=== PATIENT | female | born 1975 | race Caucasian/White ===

== ENCOUNTER → 2019-11-08 10:40 | Outpatient (BNVA) | payer MEDICAID, SELFPAY | PROVIDERS: Family Provider Family Medicine; PCP Family Medicine; Visit Provider Nurse Practitioner Family | DX: R05 Cough (principal); R10.9 Unspecified abdominal pain; J01.00 Acute maxillary sinusitis, unspecified; N39.0 Urinary tract infection, site not specified | CPT/HCPCS: 81003; 87086; 87804 ==

== ENCOUNTER → 2019-12-11 13:41 | Outpatient (BNVA) | payer MEDICAID, SELFPAY | PROVIDERS: Family Provider Family Medicine; PCP Family Medicine; Visit Provider Nurse Practitioner | DX: F33.2 Major depressive disorder, recurrent severe without psychotic features (principal); G47.30 Sleep apnea, unspecified | CPT/HCPCS: 99213 ==

== ENCOUNTER 2020-01-01 08:38 | Outpatient (CLI) | payer MEDICAID, SELFPAY ==
--- NOTE | 2020-01-01 09:00 | MM_ITS ---
WS: [id number] Bilateral diagnostic digital mammogram, 01/01/2020 Clinical Data: breast pain Comparison: None. Findings: No spiculated masses or clustered calcifications are seen. There are no secondary signs of carcinoma. The breast parenchymal pattern shows heterogeneous density. MM/[id number] Impression: 1. Negative bilateral mammograms with no comparison view available. 2. Recommend bilateral breast ultrasound. BIRADS: 0-Incomplete: Need additional imaging evaluation FOLLOW UP: See Report The CAD box car checker was used.
--- NOTE | 2020-01-01 09:30 | US_ITS ---
WS: [id number] Bilateral breast ultrasound, 01/01/2020 Clinical Data: breast pain Comparison: Mammogram, 01/01/2020 Findings: The right breast was imaged and in the upper inner quadrant at 1:00 there were 2 breast cysts. One m easured 0.4 x 0.4 x 0.4 cm and the other was 0.2 x 0.2 x 0.3 cm. In the upper outer quadrant the estela laura of the breast showed only normal breast tissue. There were no masses. The left breast was scanned in the 1:00 position in the upper outer quadrant. No abnormal tissue coul d be seen. There were no cysts or masses. There were several dilated mammary ducts. 1. Right breast shows 2 small cysts in the upper inner quadrant at 1:00. 2. Left breast shows minimally dilated mammary ducts in the upper outer quadrant at 1:00. US/US breast BI limited* [id number] Impression: BIRADS: 2-Benign FOLLOW UP: 1 Year Follow-up
== END 2020-01-01 08:39 | disposition home or self-care (01) ==
LOC: RADSHAW 08:40
PROVIDERS: Family Provider Family Medicine; PCP Family Medicine; Visit Provider Obstetrics & Gynecology
DX: N60.01 Solitary cyst of right breast (principal); N60.42 Mammary duct ectasia of left breast; N63.12 Unspecified lump in the right breast, upper inner quadrant; N63.21 Unspecified lump in the left breast, upper outer quadrant
CPT/HCPCS: 76642; 77066

== ENCOUNTER → 2020-02-09 09:57 | Outpatient (BNVA) | payer MEDICAID, SELFPAY | PROVIDERS: Family Provider Family Medicine; PCP Family Medicine; Visit Provider Specialist | DX: G43.909 Migraine, unspecified, not intractable, without status migrainosus (principal); F17.210 Nicotine dependence, cigarettes, uncomplicated | CPT/HCPCS: 99213 ==

== ENCOUNTER → 2020-03-05 07:44 | Outpatient (BNVA) | payer MEDICAID, SELFPAY | PROVIDERS: Family Provider Family Medicine; PCP Family Medicine; Visit Provider Nurse Practitioner | DX: F33.2 Major depressive disorder, recurrent severe without psychotic features (principal); G47.30 Sleep apnea, unspecified | CPT/HCPCS: 99214 ==

== ENCOUNTER → 2020-05-12 07:44 | Outpatient (BNVA) | payer MEDICAID, SELFPAY | PROVIDERS: Family Provider Family Medicine; PCP Family Medicine; Visit Provider Nurse Practitioner | DX: G47.30 Sleep apnea, unspecified (principal); F33.2 Major depressive disorder, recurrent severe without psychotic features; F41.1 Generalized anxiety disorder; F43.12 Post-traumatic stress disorder, chronic | CPT/HCPCS: 99214 ==

== ENCOUNTER → 2020-05-25 10:20 | Outpatient (BNVA) | payer MEDICAID, SELFPAY | PROVIDERS: Family Provider Family Medicine; PCP Family Medicine; Visit Provider Nurse Practitioner | DX: M54.5 Low back pain (principal); Z87.440 Personal history of urinary (tract) infections | CPT/HCPCS: 80053; 81000; 87077; 87086; 87186 ==

== ENCOUNTER → 2020-06-08 14:14 | Outpatient (BNVA) | payer MEDICAID, SELFPAY | PROVIDERS: Family Provider Family Medicine; PCP Family Medicine; Visit Provider Specialist | DX: G43.019 Migraine without aura, intractable, without status migrainosus (principal); F17.210 Nicotine dependence, cigarettes, uncomplicated | CPT/HCPCS: 99213 ==

== ENCOUNTER → 2020-08-04 07:53 | Outpatient (BNVA) | payer MEDICAID, SELFPAY | PROVIDERS: Family Provider Family Medicine; PCP Family Medicine; Visit Provider Nurse Practitioner | DX: F33.2 Major depressive disorder, recurrent severe without psychotic features (principal); G47.30 Sleep apnea, unspecified | CPT/HCPCS: 99213 ==

== ENCOUNTER → 2020-08-22 10:24 | Outpatient (BNVA) | payer MEDICAID, SELFPAY | PROVIDERS: Family Provider Family Medicine; PCP Family Medicine; Visit Provider Nurse Practitioner | DX: N39.0 Urinary tract infection, site not specified (principal) | CPT/HCPCS: 81000; 87086 ==

== ENCOUNTER → 2020-10-28 10:39 | Outpatient (BNVA) | payer MEDICAID, SELFPAY | PROVIDERS: PCP Family Medicine; Visit Provider Nurse Practitioner | DX: F33.2 Major depressive disorder, recurrent severe without psychotic features (principal); G47.30 Sleep apnea, unspecified | CPT/HCPCS: 99213 ==

== ENCOUNTER → 2020-11-08 10:49 | Outpatient (BNVA) | payer MEDICAID, SELFPAY | PROVIDERS: PCP Family Medicine; Visit Provider Internal Medicine Rheumatology | DX: M05.79 Rheumatoid arthritis with rheumatoid factor of multiple sites without organ or systems involvement (principal); Z79.899 Other long term (current) drug therapy; Z11.1 Encounter for screening for respiratory tuberculosis; Z11.59 Encounter for screening for other viral diseases; F17.210 Nicotine dependence, cigarettes, uncomplicated | CPT/HCPCS: 99204 ==

== ENCOUNTER → 2020-11-11 12:47 | Outpatient (BNVA) | payer MEDICAID, SELFPAY | PROVIDERS: PCP Family Medicine; Visit Provider Specialist | DX: G43.711 Chronic migraine without aura, intractable, with status migrainosus (principal); F17.210 Nicotine dependence, cigarettes, uncomplicated | CPT/HCPCS: 99213 ==

== ENCOUNTER → 2020-12-21 13:03 | Outpatient (BNVA) | payer MEDICAID, SELFPAY | PROVIDERS: PCP Family Medicine; Visit Provider Internal Medicine Rheumatology | DX: M05.79 Rheumatoid arthritis with rheumatoid factor of multiple sites without organ or systems involvement (principal); Z79.899 Other long term (current) drug therapy; Z79.52 Long term (current) use of systemic steroids; R25.2 Cramp and spasm; F17.210 Nicotine dependence, cigarettes, uncomplicated | CPT/HCPCS: 99214 ==

== ENCOUNTER → 2021-01-20 08:40 | Outpatient (BNVA) | payer MEDICAID, SELFPAY | PROVIDERS: PCP Family Medicine; Visit Provider Nurse Practitioner | DX: F33.2 Major depressive disorder, recurrent severe without psychotic features (principal); G47.00 Insomnia, unspecified | CPT/HCPCS: 99214 ==

== ENCOUNTER 2021-02-07 07:42 | Outpatient (CLI) | payer MEDICAID, SELFPAY ==
--- NOTE | 2021-02-07 08:00 | MM_ITS ---
WS: [id number] Exam: [id number] Date/Time of Exam: 02/07/2021 7:49 AM Reason For Exam: Z12.39 - Encounter for other screening for malignant neoplasm of breast VIEWS: MLO and CC views both breasts. Comparison made with prior exam of 01/01/2020. Findings: There was no sign of mass, architectural distortion or suspicious calcification in either breast. He terogeneously dense MM/[place] [id number] Impression: BI-RADS: 2-Benign FOLLOW-UP: 1 Year Follow-up This mammogram was also analyzed by the Computer Aided Detection System R2 Imag e Linen Grader.
== END 2021-02-07 07:43 | disposition home or self-care (01) ==
LOC: RADSHAW 07:43
PROVIDERS: PCP Family Medicine; Visit Provider Obstetrics & Gynecology
DX: Z12.31 Encounter for screening mammogram for malignant neoplasm of breast (principal)
CPT/HCPCS: 77067

== ENCOUNTER → 2021-04-14 13:05 | Outpatient (BNVA) | payer MEDICAID, SELFPAY | PROVIDERS: PCP Family Medicine; Visit Provider Nurse Practitioner | DX: F33.2 Major depressive disorder, recurrent severe without psychotic features (principal); G47.00 Insomnia, unspecified | CPT/HCPCS: 99214 ==

== ENCOUNTER → 2021-04-26 12:48 | Outpatient (BNVA) | payer MEDICAID, SELFPAY | PROVIDERS: PCP Family Medicine; Visit Provider Internal Medicine Rheumatology | DX: M05.79 Rheumatoid arthritis with rheumatoid factor of multiple sites without organ or systems involvement (principal); Z79.899 Other long term (current) drug therapy; Z71.89 Other specified counseling; F17.210 Nicotine dependence, cigarettes, uncomplicated | CPT/HCPCS: 99214 ==

== ENCOUNTER → 2021-05-11 08:57 | Outpatient (BNVA) | payer MEDICAID, SELFPAY | PROVIDERS: PCP Family Medicine; Visit Provider Specialist | DX: G43.711 Chronic migraine without aura, intractable, with status migrainosus (principal); M06.9 Rheumatoid arthritis, unspecified; F17.210 Nicotine dependence, cigarettes, uncomplicated | CPT/HCPCS: 99213; 99214 ==

== ENCOUNTER → 2021-07-14 13:01 | Outpatient (BNVA) | payer MEDICAID, SELFPAY | PROVIDERS: PCP Family Medicine; Visit Provider Nurse Practitioner | DX: F33.2 Major depressive disorder, recurrent severe without psychotic features (principal); G47.00 Insomnia, unspecified | CPT/HCPCS: 99214 ==

== ENCOUNTER → 2021-08-02 08:43 | Outpatient (BNVA) | payer MEDICAID, SELFPAY | PROVIDERS: PCP Family Medicine; Visit Provider Internal Medicine Rheumatology | DX: M05.79 Rheumatoid arthritis with rheumatoid factor of multiple sites without organ or systems involvement (principal); Z79.899 Other long term (current) drug therapy | CPT/HCPCS: 36415; 80076; 82565; 85025; 86140 ==

== ENCOUNTER → 2021-08-09 12:31 | Outpatient (BNVA) | payer MEDICAID, SELFPAY | PROVIDERS: PCP Family Medicine; Visit Provider Internal Medicine Rheumatology | DX: M05.79 Rheumatoid arthritis with rheumatoid factor of multiple sites without organ or systems involvement (principal); Z79.899 Other long term (current) drug therapy; Z71.89 Other specified counseling; F17.210 Nicotine dependence, cigarettes, uncomplicated | CPT/HCPCS: 99214 ==

== ENCOUNTER → 2021-10-13 13:42 | Outpatient (BNVA) | payer MEDICAID, SELFPAY | PROVIDERS: PCP Family Medicine; Visit Provider Nurse Practitioner | DX: F33.2 Major depressive disorder, recurrent severe without psychotic features (principal); G47.00 Insomnia, unspecified | CPT/HCPCS: 99214 ==

== ENCOUNTER → 2021-11-07 14:58 | Outpatient (BNVA) | payer MEDICAID, SELFPAY | PROVIDERS: PCP Family Medicine; Visit Provider Specialist | DX: G43.919 Migraine, unspecified, intractable, without status migrainosus (principal); Z71.85 Encounter for immunization safety counseling; F17.200 Nicotine dependence, unspecified, uncomplicated | CPT/HCPCS: 99214 ==

== ENCOUNTER 2021-11-11 20:06 | Emergency (ER) | payer MEDICAID, SELFPAY ==
[2021-11-11 20:43] VITALS: BP 145/83; PULSE 100; RESP 16; TEMP 37.6; O2SAT 98
--- NOTE | 2021-11-11 22:24 | W.ED.COVID ---
Documented by User: CHANCE Segovia 11/12/21 01:54 HPI - COVID General: Chief Complaint: COVID symptoms Stated Complaint: back pain, headache, neck pain Time Seen by Provider: 11/11/21 22:24 Triage information: No fever, cough or shortness of breath. No known COVID + exposure last 14 days History of Present Illness: 46-year-old female comes in with headache. Patient also has complaints of neck and mid back pain. Patient reports laying in bed most of the day trying to get rid of the migraine headache and started having back and neck discomfort. Patient appears well. Patient appears in moderate pain. Patient reports light sensitivity, nausea, along with her pain. Patient reports that she is usually able to manage her headaches at home but was not able to tolerate it today. Patient has a history of migraines, rheumatoid arthritis, low back pains, and major depression. COVID 19 common symptoms: positive headache(s) COVID Results: No Data to Display Review of Systems Musc: Reports: neck pain and back pain Neuro: Reports: headache(s) PFSH ED PFSH: Medical History Chronic steroid use High risk medication use History of COPD Immunization counseling Insomnia Major depressive disorder, recurrent severe without psychotic features Migraine headache Past heart attack 5-10 years ago Psychiatric care Seropositive rheumatoid arthritis of multiple sites Sleep apnea, unspecified Surgical History History of bilateral tubal ligation (~1996) History of cholecystectomy (~1996) History of endometrial ablation (06/26/06) ThermaChoice endometrial ablation. Dx: Menorrhagia. Performed by Dr. Holcomb [facility] in [place], [place]. History of hand surgery Left ring finger History of left knee surgery (~2012) History of right knee surgery (~2018) Dr. Smith History of tonsillectomy and adenoidectomy (~1983) Age 9 History of total vaginal hysterectomy (02/01/10) Dx: Lower abdominal pain, Dyspareunia, Entrapped menses. Performed by Dr. Holcomb at [facility] in [place], [place]. Status post hemilaminotomy (08/24/16) Bilateral L5-S1 hemilminotomy/disectomy/foraminotomy. Dx: Displaced lumbosacral intravertebral disc with radiculopathy. Performed by at [facility] in [place], [place]. Family History Unknown Hypertension family members in general Grandmother Diabetes maternal Sister Diabetes Hypercholesteremia Mother Hypercholesteremia Diabetes CAD (coronary artery disease) [place] Family/Other Breast cancer maternal aunt Other Cancer Denies family history of Rheumatoid arthritis Lupus Hyperlipidemia Chronic kidney disease (CKD) Lung disease Stroke Social History Smoking risk assessment/counseling performed?: Yes Tobacco counseling given: counseling >3 minutes Alcohol intake: never History of recent travel: Yes ([place]) Out of state: No Physical Exam Const: COMMON NORMALS: alert Neck/C-Spine: CERVICAL SPINE: Yes Paracervical muscle tenderness right, Yes Paracervical spasm right and Yes Trapezius muscle tenderness Resp: COMMON NORMALS: normal respiratory effort and clear to auscultation bilaterally AUSCULTATION: clear to auscultation bilaterally Cardio: COMMON NORMALS: regular rate and regular rhythm RATE: regular rate RHYTHM: regular rhythm Back/Pelvis: THORACIC SPINE/UPPER BACK: Yes paraspinal muscle tenderness Thoracic paraspinal muscle tenderness: right LUMBAR SPINE/LOWER BACK: Yes paraspinal muscle tenderness Lumbar paraspinal muscle tenderness: right Extremity: COMMON NORMALS: normal to inspection Neuro: SENSORIUM/ORIENTATION: Yes alert Skin: COMMON NORMALS: no rashes or lesions noted GENERAL SKIN EXAM: no rashes or lesions noted Course Vital Signs: Vital signs: Vital Signs Temperature 98.4 F 11/12/21 01:21 Pulse Rate 79 11/12/21 01:21 Respiratory Rate 18 11/12/21 01:21 Blood Pressure 126/68 11/12/21 01:21 Pulse Oximetry 99 11/12/21 01:21 MDM - COVID Medical Decision Making 46-year-old female comes in today with complaints of headache along with muscle pain to the back and neck. On exam the patient had muscle tightness and tenderness along the right cervical spine, mid thoracic spine, and lower lumbar spine. Patient had good range of motion of extremities and back. Patient did have some guarding with rotation of the neck to the right. Vital signs were normal. No signs of injury or illness was noted. Differential diagnosis includes migraine headache, tension headache, muscle strain. Patient was treated for her headache with Reglan 10 mg, and diphenhydramine 12-1/2 mg. Patient was given 8 mg of IV push dexamethasone to prevent rebound headache. Patient was also given some ketorolac 15 mg and orphenadrine 60 mg for her back and neck pain. Patient had improvement in her pain and symptoms. I believe the patient probably has some musculoskeletal pain that has exacerbated patient's chronic headaches. We will continue patient on some meloxicam and tizanidine to help with her back pain. Lab Data No Data to Display Discharge Plan Discharge Patient Disposition: Home Clinical Impression: Acute right-sided thoracic back pain Condition: Stable Prescriptions: New meloxicam 15 mg tablet 15 mg PO DAILY Qty: 10 0RF tizanidine 4 mg tablet 4 mg PO Q8H PRN (Reason: muscle spasticity) Qty: 14 0RF No Action docusate sodium [Colace] 100 mg capsule 200 mg PO DAILY 0RF cholecalciferol (vitamin D3) 4,000 unit capsule 8,000 unit PO DAILY 0RF tramadol 50 mg tablet 50 mg PO Q8H PRN0RF Humira Pen 40 mg/0.8 mL pen injector kit 40 mg SUBCUT Q14D Qty: 2 3RF prednisone 5 mg tablet See Rx Instructions PO DAILY Qty: 90 1RF Rx Instructions: take 1.5 tabs (7.5mg) for 2weeks then stay on 1 tab (5mg) daily PO daily; leflunomide 20 mg tablet 20 mg PO DAILY Qty: 30 3RF Emgality Pen 120 mg/mL pen injector 120 mg SUBCUT ONCE Qty: 1 2RF prazosin 2 mg capsule 4 mg PO .at bed Qty: 60 2RF topiramate [Topamax] 100 mg tablet 100 mg PO BID Qty: 60 3RF diclofenac sodium 1 % gel 2 g topical QID Qty: 100 2RF Rx Instructions: apply to affected area as needed zolpidem [Ambien] 10 mg tablet 10 mg PO .HS Qty: 30 2RF Discharge Orders: Discharge ED (Routine); Ordered 11/11/21 Ordered By: Toney Mejia Referrals: Nish Alexandra MD [Primary Care Provider] - Discharge Diet: Usual diet Discharge Activity: Increase activity as tolerated Patient Instructions: Back Pain (ED), Opioid Safety Activity Restrictions/Additional Instructions: Activity as tolerated. Gentle stretching and range of motion exercises. Use acetaminophen, meloxicam, and tizanidine to help with your back pain and muscle tightness. Make sure to drink plenty of water with medication. Follow-up with primary care for further instruction. Return to the ER for new concerns. Coding Level of Care Code ED Court Orderly for Chg Fwd Exam Detailed Medical Decision Making Low Complexity Time Spent (min) 30 Documented by User: Marcell Bragg DO 11/12/21 02:03 HPI - COVID General: Chief Complaint: COVID symptoms Stated Complaint: back pain, headache, neck pain Time Seen by Provider: 11/11/21 22:24 COVID Results: No Data to Display PFSH ED PFSH: Medical History Chronic steroid use High risk medication use History of COPD Immunization counseling Insomnia Major depressive disorder, recurrent severe without psychotic features Migraine headache Past heart attack 5-10 years ago Psychiatric care Seropositive rheumatoid arthritis of multiple sites Sleep apnea, unspecified Surgical History History of bilateral tubal ligation (~1996) History of cholecystectomy (~1996) History of endometrial ablation (06/26/06) ThermaChoice endometrial ablation. Dx: Menorrhagia. Performed by Dr. Holcmob [facility] in [place], [place]. History of hand surgery Left ring finger History of left knee surgery (~2012) History of right knee surgery (~2018) Dr. Smith History of tonsillectomy and adenoidectomy (~1983) Age 9 History of total vaginal hysterectomy (02/01/10) Dx: Lower abdominal pain, Dyspareunia, Entrapped menses. Performed by Dr. Holcomb at [facility] in [place], [place]. Status post hemilaminotomy (08/24/16) Bilateral L5-S1 hemilminotomy/disectomy/foraminotomy. Dx: Displaced lumbosacral intravertebral disc with radiculopathy. Performed by at [facility] in [place], [place]. Family History Unknown Hypertension family members in general Grandmother Diabetes maternal Sister Diabetes Hypercholesteremia Mother Hypercholesteremia Diabetes CAD (coronary artery disease) [place] Family/Other Breast cancer maternal aunt Other Cancer Denies family history of Rheumatoid arthritis Lupus Hyperlipidemia Chronic kidney disease (CKD) Lung disease Stroke Social History Smoking risk assessment/counseling performed?: Yes Tobacco counseling given: counseling >3 minutes Alcohol intake: never History of recent travel: Yes ([place]) Out of state: No Course Vital Signs: Vital signs: Vital Signs Temperature 98.4 F 11/12/21 01:21 Pulse Rate 79 11/12/21 01:21 Respiratory Rate 18 11/12/21 01:21 Blood Pressure 126/68 11/12/21 01:21 Pulse Oximetry 99 11/12/21 01:21 [facility] - COVID Medical Decision Making 46-year-old female comes in today with complaints of headache along with muscle pain to the back and neck. On exam the patient had muscle tightness and tenderness along the right cervical spine, mid thoracic spine, and lower lumbar spine. Patient had good range of motion of extremities and back. Patient did have some guarding with rotation of the neck to the right. Vital signs were normal. No signs of injury or illness was noted. Differential diagnosis includes migraine headache, tension headache, muscle strain. Patient was treated for her headache with Reglan 10 mg, and diphenhydramine 12-1/2 mg. Patient was given 8 mg of IV push dexamethasone to prevent rebound headache. Patient was also given some ketorolac 15 mg and orphenadrine 60 mg for her back and neck pain. Patient had improvement in her pain and symptoms. I believe the patient probably has some musculoskeletal pain that has exacerbated patient's chronic headaches. We will continue patient on some meloxicam and tizanidine to help with her back pain. This patient was originally seen by CHANCE Ashford.? I agree with his history, evaluation, and treatment. Lab Data No Data to Display Discharge Plan Discharge Patient Disposition: Home Clinical Impression: Acute right-sided thoracic back pain Condition: Stable Prescriptions: New meloxicam 15 mg tablet 15 mg PO DAILY Qty: 10 0RF tizanidine 4 mg tablet 4 mg PO Q8H PRN (Reason: muscle spasticity) Qty: 14 0RF No Action docusate sodium [Colace] 100 mg capsule 200 mg PO DAILY 0RF cholecalciferol (vitamin D3) 4,000 unit capsule 8,000 unit PO DAILY 0RF tramadol 50 mg tablet 50 mg PO Q8H PRN0RF Humira Pen 40 mg/0.8 mL pen injector kit 40 mg SUBCUT Q14D Qty: 2 3RF prednisone 5 mg tablet See Rx Instructions PO DAILY Qty: 90 1RF Rx Instructions: take 1.5 tabs (7.5mg) for 2weeks then stay on 1 tab (5mg) daily PO daily; leflunomide 20 mg tablet 20 mg PO DAILY Qty: 30 3RF Emgality Pen 120 mg/mL pen injector 120 mg SUBCUT ONCE Qty: 1 2RF prazosin 2 mg capsule 4 mg PO .at bed Qty: 60 2RF topiramate [Topamax] 100 mg tablet 100 mg PO BID Qty: 60 3RF diclofenac sodium 1 % gel 2 g topical QID Qty: 100 2RF Rx Instructions: apply to affected area as needed zolpidem [Ambien] 10 mg tablet 10 mg PO .HS Qty: 30 2RF Discharge Orders: Discharge ED (Routine); Ordered 11/11/21 Ordered By: Toney Mejia Referrals: Nish Alexandra MD [Primary Care Provider] - Discharge Diet: Usual diet Discharge Activity: Increase activity as tolerated Patient Instructions: Back Pain (ED), Opioid Safety Activity Restrictions/Additional Instructions: Activity as tolerated. Gentle stretching and range of motion exercises. Use acetaminophen, meloxicam, and tizanidine to help with your back pain and muscle tightness. Make sure to drink plenty of water with medication. Follow-up with primary care for further instruction. Return to the ER for new concerns. Coding Level of Care Code ED Court Orderly for Chg Fwd Exam Detailed Medical Decision Making Low Complexity Time Spent (min) 30
[2021-11-11 22:46] VITALS: O2SAT 98
[2021-11-11] MEDS: sodium chloride 0.9% 500 ML 999 ML IV (23:09)
[2021-11-11] MEDS: orphenadrine 30 mg/mL Inj 2 mL 60 MG IVP (23:09)
[2021-11-11] MEDS: ketorolac 30 mg/mL INJ 15 MG IVP (23:10)
[2021-11-11] MEDS: diphenhydrAMINE 50 mg/mL SDV 1mL 12.5 MG IVP (23:10)
[2021-11-11] MEDS: metoclopramide 5 mg/mL SDV 2 mL 10 MG IVP (23:10)
[2021-11-11] MEDS: dexamethasone 4 mg/mL INJ 8 MG IVP (23:11)
--- NOTE | 2021-11-11 23:28 | PC.NURSE ---
pt states when breathing in heavy it hurts her back. states her neck hurts down her back. pt denies being exposed to anyone with covid.
[2021-11-11 23:56] VITALS: RESP 18
[2021-11-11] MEDS: morphine 4 mg/mL SDV 1 mL 2 MG IVP (23:56)
[2021-11-12 01:21] VITALS: BP 126/68; PULSE 79; RESP 18; TEMP 36.9; O2SAT 99
== END 2021-11-12 01:21 | disposition home or self-care (01) ==
PROVIDERS: Emergency Provider Nurse Practitioner Family; PCP Family Medicine
DX: M54.6 Pain in thoracic spine (principal); J44.9 Chronic obstructive pulmonary disease, unspecified
CPT/HCPCS: 96374; 96375; 99284; J1100; J1200; J1885; J2270; J2360; J2765; J7040

== ENCOUNTER → 2022-01-04 09:57 | Outpatient (BNVA) | payer MEDICAID, SELFPAY | PROVIDERS: PCP Family Medicine; Visit Provider Internal Medicine Rheumatology | DX: M05.79 Rheumatoid arthritis with rheumatoid factor of multiple sites without organ or systems involvement (principal); Z79.899 Other long term (current) drug therapy; G56.03 Carpal tunnel syndrome, bilateral upper limbs | CPT/HCPCS: 99214 ==

== ENCOUNTER 2022-01-04 12:35 | Outpatient (CLI) | payer MEDICAID, SELFPAY ==
--- NOTE | 2022-01-04 12:50 | XR_ITS ---
WS: [id number] Thoracic spine, 3 views, 01/04/2022 Clinical Data: M05.79 - Rheumatoid arthritis with rheumatoid factor of m... Comparison: Thoracic spine, 08/03/2021. Findings: No compression fractures are seen. The disc heights are normal. Minimal osteophytes are present but unchanged from before. There are clips in the right upper quadran t from a cholecystectomy. 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
--- NOTE | 2022-01-04 12:50 | XR_ITS ---
WS: [id number] Lumbar spine, 3 views, 01/04/2022 Clinical Data: M05.79 - Rheumatoid arthritis with rheumatoid factor of m... Comparison: Lateral lumbar spine, 11/13/2018. Findings: No compression fractures or subluxation is seen. There is degenerative disc narrowing at L5-S1 with a nterior osteophytes.The transverse processes and SI joints are unremarkable. XR/XR lumbar spine 2-3V* [id number] Impression: 1. Degenerative disc narrowing at L5-S1. 2. Anterior osteophytes at L5-S1.
== END 2022-01-04 12:36 | disposition home or self-care (01) ==
LOC: RAD 12:36
PROVIDERS: PCP Family Medicine; Visit Provider Internal Medicine Rheumatology
DX: M05.79 Rheumatoid arthritis with rheumatoid factor of multiple sites without organ or systems involvement (principal); M54.50 Low back pain, unspecified; M47.814 Spondylosis without myelopathy or radiculopathy, thoracic region; M25.78 Osteophyte, vertebrae
CPT/HCPCS: 72072; 72100

== ENCOUNTER → 2022-01-12 13:36 | Outpatient (BNVA) | payer MEDICAID, SELFPAY | PROVIDERS: PCP Family Medicine; Visit Provider Nurse Practitioner | DX: F33.2 Major depressive disorder, recurrent severe without psychotic features; F17.210 Nicotine dependence, cigarettes, uncomplicated; G47.00 Insomnia, unspecified | CPT/HCPCS: 99214 ==

== ENCOUNTER → 2022-02-07 13:07 | Outpatient (BNVA) | payer MEDICAID, SELFPAY | PROVIDERS: PCP Family Medicine; Visit Provider Specialist | DX: G43.711 Chronic migraine without aura, intractable, with status migrainosus (principal); F17.210 Nicotine dependence, cigarettes, uncomplicated | CPT/HCPCS: 64615; J0585 ==

== ENCOUNTER 2022-02-08 08:00 | Outpatient (CLI) | payer MEDICAID, SELFPAY ==
--- NOTE | 2022-02-08 08:10 | US_ITS ---
WS: [id number] TRANSVAGINAL PELVIC ULTRASOUND HISTORY: R10.2 - Pelvic and perineal pain COMPARISON: 01/06/2019 Prior hysterectomy. No midline mass. No abnormality in the region of the vaginal cuff. No free fluid in the pelvis. Right ovary: 3.2 cm x 1.9 cm x 1.0 cm. Normal size ovary. Small cyst associated with the RIGHT ovary. Cyst measures 1.7 x 1.3 x 1.8 cm. There is good through transmission. Cyst was present also on the p rior study from 01/06/2019 but this is a smaller cyst. Normal ovarian vascularity. Left ovary: Prior oophorectomy. US/US transvaginal [id number] IMPRESSION: 1. Small RIGHT ovarian cyst. No solid mass. 2. Status post hysterectomy and LEFT oophorectomy.
== END 2022-02-08 08:01 | disposition home or self-care (01) ==
LOC: RAD 08:01
PROVIDERS: PCP Family Medicine; Visit Provider Nurse Practitioner Women's Health
DX: R10.2 Pelvic and perineal pain (principal); N83.201 Unspecified ovarian cyst, right side; Z90.710 Acquired absence of both cervix and uterus; Z90.721 Acquired absence of ovaries, unilateral
CPT/HCPCS: 76830

== ENCOUNTER → 2022-04-06 13:34 | Outpatient (BNVA) | payer MEDICAID, SELFPAY | PROVIDERS: PCP Family Medicine; Visit Provider Nurse Practitioner | DX: F17.210 Nicotine dependence, cigarettes, uncomplicated (principal); F33.2 Major depressive disorder, recurrent severe without psychotic features; G47.00 Insomnia, unspecified | CPT/HCPCS: 99214 ==

== ENCOUNTER → 2022-04-19 11:00 | Outpatient (BNVA) | payer MEDICAID, SELFPAY | PROVIDERS: PCP Family Medicine; Visit Provider Nurse Practitioner Women's Health | DX: R10.2 Pelvic and perineal pain (principal); N76.0 Acute vaginitis | CPT/HCPCS: 87086; 87491; 87591; 87661 ==

== ENCOUNTER → 2022-05-04 08:56 | Outpatient (BNVA) | payer MEDICAID, SELFPAY | PROVIDERS: PCP Family Medicine; Visit Provider Specialist | DX: G43.711 Chronic migraine without aura, intractable, with status migrainosus (principal) | CPT/HCPCS: 64615; J0585 ==

== ENCOUNTER → 2022-05-11 10:06 | Outpatient (BNVA) | payer MEDICAID, SELFPAY | PROVIDERS: PCP Family Medicine; Visit Provider Internal Medicine Rheumatology | DX: M05.79 Rheumatoid arthritis with rheumatoid factor of multiple sites without organ or systems involvement (principal); Z79.899 Other long term (current) drug therapy; G56.03 Carpal tunnel syndrome, bilateral upper limbs | CPT/HCPCS: 99214 ==

== ENCOUNTER → 2022-05-30 07:58 | Outpatient (BNVA) | payer MEDICAID, SELFPAY | PROVIDERS: PCP Family Medicine; Visit Provider Obstetrics & Gynecology | DX: R10.2 Pelvic and perineal pain (principal); N83.201 Unspecified ovarian cyst, right side | CPT/HCPCS: 76830 ==

== ENCOUNTER 2022-06-20 09:02 | Day surgery (SDC) | payer MEDICAID, SELFPAY ==
[2022-06-16 09:01] VITALS: BMI 34.2
[2022-06-20] VITALS (10 sets, daily range): BP systolic 93–148; BP diastolic 72–87; PULSE 66–107; RESP 18–22; TEMP 36.5–36.8; O2SAT 95–100
[2022-06-20] MEDS: scopolamine 1.5 Patch 1 PATCH TRANSDERMA ×2 (09:30→09:46)
[2022-06-20] MEDS: sodium chloride 0.9% 1,000 ML 30 ML IV (09:41)
[2022-06-20] MEDS: acetaminophen 1,000 MG/100 ML PIGGYBACK 400 MG IV (09:46)
[2022-06-20] MEDS: gabapentin 300 mg Capsule PO (09:47)
[2022-06-20] MEDS: phenazopyridine 100 mg Tablet 200 MG PO (09:47)
[2022-06-20] MEDS: CELEcoxib 200 mg Capsule 400 MG PO (09:57)
--- NOTE | 2022-06-20 10:06 | P.ANESASSM_ITS ---
Pre-Anesthetic Assessment Height/Weight: Height 1.7 m Weight 99.337 kg Temp Pulse Resp BP Pulse Ox O2 Del Method 98.0 F 78 18 127/73 97 06/20/22 09:20 06/20/22 09:20 06/20/22 09:20 06/20/22 09:20 06/20/22 09:20 06/20/22 09:31 Preop Diagnosis: right ovarian mass Operation Date: 06/20/22 10:50 Proposed Procedures p Laparoscopic right salpingo-oophorectomy 97455,R10.2(Right) - Angela Huizar MD Familial anesthetic complications: none Was Beta Angel taken within 24 hours: N/A Was Clonidine taken within 24 hours: N/A Last intake: Intake Last Liquid Date 06/19/22 Last Liquid Time 23:45 Last Solid Date 06/19/22 Last Solid Time 20:00 Social No alcohol and No tobacco Exam alert, oriented x 3, clear to auscultation bilaterally and regular rate & rhythm Airway Mallampati: Class III Dentition: other (missing) Pulmonary Chronic Obstructive Pulmonary Disease and Sleep Apnea CV/HEM Patient said she went to ER with chest pains many years ago and had heart attack, review of ER records indicate patient was thought to have chostochondritis at that visit. No further episodes of chest pain Musc/skel Rheumatoid Arthritis Neuropsych Neuropathy Anesthetic Plan ASA status: 3 Anesthesia: General Risk of > 500 ml blood loss (7ml/kg in children): No Medications/Allergies Home Medications Medication Instructions Recorded Confirmed Last Taken Type cholecalciferol (vitamin D3) 100 8,000 unit PO DAILY 12/11/19 06/20/22 06/19/22 History mcg (4,000 unit) capsule docusate sodium 100 mg capsule 200 mg PO DAILY 12/11/19 06/20/22 06/19/22 History (Colace) tramadol 50 mg tablet 50 mg PO Q8H PRN Pain 04/14/21 06/20/22 Unknown History diclofenac sodium 1 % topical gel See Rx Instructions .Route 12/05/21 06/16/22 Unknown Rx (Arthritis Pain (diclofenac)) .COMPLEX #100 grams onabotulinumtoxinA 100 unit 100 unit IM .Q90 04/06/22 06/16/22 Unknown History solution for injection (Botox) prazosin 2 mg capsule 4 mg PO .at bed #60 caps 04/06/22 06/20/22 06/19/22 Rx zolpidem 10 mg tablet (Ambien) 10 mg PO .HS #30 tabs 04/06/22 06/20/22 06/19/22 Rx diazepam 10 mg tablet (Valium) 10 mg PO BID PRN anxiety #2 tabs 04/19/22 06/20/22 Unknown Rx adalimumab 40 mg/0.8 mL See Rx Instructions .Route 05/11/22 06/20/22 06/14/22 Rx subcutaneous pen kit (Humira Pen) .COMPLEX #4 ea topiramate 100 mg tablet 100 mg PO DAILY 06/16/22 06/20/22 06/15/22 History Allergies Allergy/AdvReac Type Severity Reaction Status Date / Time aspirin Allergy Severe rash Verified 05/26/22 09:50 whelps and yadira swelling atorvastatin [From Lipitor] Allergy Intermediate cough & Verified 05/26/22 09:50 hives Current Medications Generic Name Dose Route Start Last Admin Trade Name Freq PRN Reason Stop Dose Admin Sodium Chloride 1,000 mls @ 30 mls/hr 06/20/22 09:15 06/20/22 09:41 Sodium Chloride 0.9% IV 06/21/22 09:14 30 mls/hr .Q24H DELBERT Administration PFSH Anesthesia Medical History Bilateral carpal tunnel syndrome High risk medication use History of COPD Insomnia Major depressive disorder, recurrent severe without psychotic features [facility]-- Jaclyn Gama Migraine without aura Nicotine dependence, cigarettes, uncomplicated No pertinent past medical history neghx: htn,dm,thyroid,dvt/pe PCP: Dr. Alexandra Past heart attack 5-10 years ago Psychiatric care Seropositive rheumatoid arthritis of multiple sites Sleep apnea, unspecified Surgical History History of bilateral tubal ligation (~1996) History of cholecystectomy (~1996) History of endometrial ablation (06/26/06) ThermaChoice endometrial ablation. Dx: Menorrhagia. Performed by Dr. Holcomb [facility] [place] in [place], [place]. History of hand surgery Left ring finger History of left knee surgery (~2012) History of right knee surgery (~2018) Dr. Smith History of tonsillectomy and adenoidectomy (~1983) Age 9 History of total vaginal hysterectomy (02/01/10) Dx: Lower abdominal pain, Dyspareunia, Entrapped menses. Performed by Dr. Holcomb at [facility] [place] in [place], [place]. Status post hemilaminotomy (08/24/16) Bilateral L5-S1 hemilminotomy/disectomy/foraminotomy. Dx: Displaced lumbosacral intravertebral disc with radiculopathy. Performed by at [facility] in [place], [place]. Family History Unknown Hypertension maternal family members in general Grandmother Diabetes maternal Sister Diabetes Hypercholesteremia Mother Hypercholesteremia Diabetes Family/Other Breast cancer maternal aunt--dx age unknown Cancer Maternal aunt--- female cancer unknown dx age 60's Denies family history of Colon cancer Ovarian cancer Chronic kidney disease (CKD) Uterine cancer Thyroid disease Stroke Social History Smoking and tobacco status: current every day smoker Data Anesthesia Cardiac Studies: No Data to Display
[2022-06-20] MEDS: ceFAZolin 2,000 MG in sodium chloride 0.9% (plus) 50 ML 100 MG IV (11:44)
--- NOTE | 2022-06-20 11:55 | W.PM.OPSUD ---
Surgery/Procedure H&P Update DATE OF PROCEDURE: June 20, 2022 DATE H&P PERFORMED: 06/16/22 H&P UPDATE INFORMATION: I have reviewed H&P completed within last 30 days, I have examined patient prior to procedure and No changes to prior documentation PREOP DIAGNOSIS: right ovarian mass PLANNED PROCEDURE: Operation Date: 06/20/22 10:50 Proposed Procedures p Laparoscopic right salpingo-oophorectomy 19014,R10.2(Right) - Angela Huizar MD Related Problem List Diagnoses (1) Adnexal mass: (2) RLQ abdominal pain:
--- NOTE | 2022-06-20 13:22 | PM.OP ---
Operative Report Date of procedure: June 20, 2022 Pre-op diagnosis: Preop Diagnosis right ovarian mass Post-op diagnosis: same Post-op diagnosis: adhesion of omentum to pelvis and bladder. Adhesion of right ovary to midline Post-op findings: sever pelvic adesions of bowel, omentum and right tube and ovary to pelvis and bladder. Evidence of endometriosis. Procedure done: laparoscopic RSO with severe lysis of adhesions. Specimens removed/disposition: right tube and ovary to pathology Surgeon: Angela Huizar Anesthesia: General Estimated blood loss (mL): 5 IV fluids (mL): 700 Urine output (mL): 200 Complications: none Condition: stable Disposition: PACU Procedure: The patient was taken to the operating room where general anesthesia was administered and found to be adequate. She was prepped and draped in the normal sterile fashion in the dorsal lithotomy position in [facility]. A basurto catheter was placed. and since the patient has had a previous hysterectomy, a sponge stick was placed in the vagina. Attention was turned to the abdomen after the gloves were changed. A 5 mm supraumbilical incision was made and carried down to the underlying layer of fascia. Using the 5 mm trocar and the scope the trocar was placed under direct visualization. The pelvis was visualized and found to have severe adhesions of the omentum and bowel. 2 additional ports were placed under direct visualization. A 5 mm on the left and a 12 mm on the right. There was blood present in the pelvis. Using the sponge stick, the entire pelvic was visualized. The omentum was adherent to the bladder, along with the bowel. The omental adhesions were taken down with the cautery. The suction senior resident care director was then used to irrigate the pelvis and suctioned out the blood and irrigated water. The right ovary was visualized and found to have a blood-filled cyst. The cyst was popped and the ovary irrigated. Using the cautery the tube and ovary were grasped and freed from the bladder. There was excellent hemostasis post removal. The tube and ovary were placed into a Endobag and removed from the abdomen. A final irrigation of the pelvis was performed and then the fluid suctioned out. There was excellent hemostasis. The trochars were removed under direct visualization and the abdomen desufflated. The uterine manipulator was removed as well as the Basurto catheter. 10 mL of half percent bupivacaine was injected subcutaneously. The right 12 mm incision had the fascia closed with 0 Vicryl. Incisions were closed using 3-0 Vicryl and skin glue. The patient tolerated the procedure well. Sponge lap and needle counts were correct x3. Taken to the recovery room in stable condition.
--- NOTE | 2022-06-20 13:33 | SUR.PHASEI ---
1325 PT TO PACU 5 PT AWAKES TO TOUCH, PT SHAKES HEAD NO TO PAIN AND NAUSEA QUESTIONS, PT GIVEN WARM BLANKETS X 2 IV TO RT HAND #20 WITH NS 300MLUP AT KVO RATE PER GRAVITY, MONITOR SR WITH NO ECTOPY, ID BRACELET TO LT WRIST PT ID'D WITH 2 IDENTIFIERS, ABDOMEN SOFT WITH 3 SITES WITH SKIN GLUE. BILAT SCDS ON.
--- NOTE | 2022-06-20 13:37 | PM.DCS ---
Discharge Providers Date of Admission: 06/20/22 Date of Discharge: June 20, 2022 Attending Provider at Discharge: Angela Huizar MD Primary Care Provider: Nish Alexandra MD Diagnoses at Discharge Discharge Diagnosis (1) Adnexal mass: Status: Acute (2) RLQ abdominal pain: Status: Acute Hospital Course Hospital Course The patient was admitted for surgery. She did well postoperatively and was ready for discharge Physical Exam Urinary Catheter Management: [place] Latex: Cath Placed During This Visit: yes, but has since been removed by the nurse Urinary Catheter Date of Insertion: 06/20/22 Urinary Catheter Time of Insertion: 12:13 Date Urinary Catheter Removed: 06/20/22 Time Urinary Catheter Discontinued: 13:06 Discharge Data Studies Completed and Pending Pending at discharge Category Date Time Status ES surgery / GI images Routine Exams 06/20/22 10:26 Taken Urine Culture Routine Lab 06/20/22 12:13 Received Pathology: Surgical [PTH] Routine Pth 06/20/22 13:05 Ordered Vitals Last Vital Signs Temp 97.7 F 06/20/22 13:27 Pulse 95 06/20/22 13:30 Resp 18 06/20/22 13:30 BP 93/75 06/20/22 13:30 Pulse Ox 97 06/20/22 13:30 O2 Del Method 06/20/22 13:30 O2 Flow Rate 8 06/20/22 13:30 Discharge Plan Discharge Patient Disposition: Home Condition: Stable Prescriptions: New hydrocodone-acetaminophen 5-325 mg tablet 1 tab PO Q4H Qty: 30 0RF Continued docusate sodium [Colace] 100 mg capsule 200 mg PO DAILY cholecalciferol (vitamin D3) 4,000 unit capsule 8,000 unit PO DAILY tramadol 50 mg tablet 50 mg PO Q8H PRN (Reason: Pain) Humira Pen 40 mg/0.8 mL pen injector kit See Rx Instructions .ROUTE .COMPLEX Qty: 4 3RF Dose Instruction: INJECT 40 MG (0.8 ML) SUBCUTANEOUSLY EVERY 14 DAYS Rx Instructions: INJECT 40 MG (0.8 ML) SUBCUTANEOUSLY EVERY 7 DAYS diazepam [Valium] 10 mg tablet 10 mg PO BID PRN (Reason: anxiety) Qty: 2 0RF Rx Instructions: Take 1 tab 30 minutes prior to appointment and another if needed when arrived. Botox 100 unit recon soln 100 unit IM .Q90 zolpidem [Ambien] 10 mg tablet 10 mg PO .HS Qty: 30 2RF prazosin 2 mg capsule 4 mg PO .at bed Qty: 60 2RF diclofenac sodium [Arthritis Pain (diclofenac)] 1 % gel See Rx Instructions .ROUTE .COMPLEX Qty: 100 2RF Dose Instruction: APPLY 2 GRAMS TOPICALLY FOUR TIMES DAILY TO AFFECTED AREA NEEDED Rx Instructions: APPLY 2 GRAMS TOPICALLY FOUR TIMES DAILY TO AFFECTED AREA NEEDED topiramate 100 mg tablet 100 mg PO DAILY Rx Instructions: TAKE 1 TABLET BY MOUTH TWICE DAILY Discharge Orders: Discharge Order (Routine); Ordered 06/20/22 Ordered By: Angela Huizar Discharge Attestations Time Spent in Discharge Care*: less than 30 min Quality Metrics Clinical Quality Measures [ No reported AMI, CVA or VTE this stay] Coding Level of Care Code Acute Chg FW DC note Diagnoses Adnexal mass N94.89 RLQ abdominal pain R10.31
--- NOTE | 2022-06-20 13:40 | SUR.PHASEI ---
PT MORE ALERT, PT REQUESTS BEDPAN, PT MOVES AND ASSISTS WITH PLACEMENT, ABDOMEN SOFT AND UNCHANGED. VSS.
[2022-06-20] MEDS: fentaNYL 50 mcg/mL INJ 2mL IVP (13:46)
--- NOTE | 2022-06-20 13:53 | SUR.PHASEI ---
PT AROUSES EASILY TO VOICE, PT STATES PAIN IS STILL THERE, BUT PT KEEPS FALLING ASLEEP, PT PAIN PER FACE AT 2 , PT OK WITH TAKING PO PAIN MED IN OPS AREA, PT SLEEPS IF NOT DISTURBED VSS.
--- NOTE | 2022-06-20 14:12 | SUR.PHASEI ---
1401 PT TO OPS SLEEPY BUT AWAKES TO VOICE, VSS ABDOMEN UNCHANGED. HANDOFF AT BEDSIDE.
[2022-06-20] MEDS: HYDROcodone-acetaminophen 5-325 mg Tablet 1 TAB PO (14:31)
--- NOTE | 2022-06-20 15:28 | ANE.PACU2 ---
Inpatient post-anesthesia follow up: Airway intact: Yes Vital signs: Temperature 97.9 F Pulse Rate 70 Respiratory Rate 18 Blood Pressure 126/72 Pulse Oximetry 95 Oxygen Delivery Me thod Room Air Oxygen Flow Rate 8 Fraction of Inspir ed Oxygen Hydration adequate: Yes Nausea and vomiting: No Pain level: 2 Mental status: Baseline
== END 2022-06-20 14:50 | disposition home or self-care (01) ==
PROVIDERS: PCP Family Medicine; Visit Provider Obstetrics & Gynecology
PROC: (CPT 58661; principal; 2022-06-20 10:40)
DX: N80.1 Endometriosis of ovary (principal); K66.0 Peritoneal adhesions (postprocedural) (postinfection); J44.9 Chronic obstructive pulmonary disease, unspecified; G47.30 Sleep apnea, unspecified; M05.89 Other rheumatoid arthritis with rheumatoid factor of multiple sites; F17.200 Nicotine dependence, unspecified, uncomplicated; Z88.6 Allergy status to analgesic agent
CPT/HCPCS: 58661; 87086; 88305; J1100; J1885; J2250; J2405; J2704; J3010; J3490; J7030

== ENCOUNTER 2022-07-20 08:57 | Outpatient (CLI) | payer MEDICAID, SELFPAY ==
--- NOTE | 2022-07-20 09:07 | MR_ITS ---
WS: [id number] MRI LUMBAR SPINE NONCONTRAST HISTORY: LUMBOSACRAL RADICULOPATHY AT S1 COMPARISON: 04/13/2016 TECHNIQUE: Sagittal and axial multisequence imaging is submitted. Cervical disc protrusion at C5-6 contacts the ventral cord. The same numbering pattern will be utilized for this MRI as on the prior study. Normal lumbar alignment with no compression fractures or marrow edema. Slight increase in the lumbar lordosis in the lower lumbar spine. Severe degenerative disc space narrowing at L5-S1. Mild reactive marrow edema along the adjacent endplates of L5 and S1. No fractures. The remaining disc spaces are normal. Conus terminates normally at L1-2 disc level. L1-L2: Normal. L2-L3: Bilateral facet joint arthritis. No stenosis or disc protrusion. L3-L4: Mild annular disc bulging with mild ligamentum flavum and facet arthritis. No high-grade steno sis. No disc protrusion. L4-L5: Mild annular disc bulging with moderate ligamentum flavum and facet arthritis. Small amount of fluid in the facet joints. Very mild encroachment into the subarticular recesses with no high-grade stenosis. L5-S1: Marked annular disc bulging and osteophytic ridging. Right-sided laminectomy defect. Mild face t and ligamentum flavum flavum hypertrophy. Disc and osteophyte disease extends into the foramina marisel aterally with mild bilateral foraminal stenosis. Mild central stenosis and mild disc osteophyte conta ct on the S1 nerve roots but no displacement. Previously described extruded disc narrowing completely resolved. Persistent but improved contact on the S1 nerve roots. MR/MR lumbar spine wo con* [id number] IMPRESSION: 1. Severe degenerative disc disease at L5-S1 with osteophytic ridging and disc bulging. Less contact on the S1 nerve roots compared to 2016 examination. Prev iously described disc at L5-S1 has significantly decreased in size. Still steno sis involving the subarticular recesses and proximal foramina. 2. RIGHT hemilaminectomy defect at L5-S1. 3. Mild encroachment upon the subarticular recesses at L4-5 with no stenosis. Mild facet joint arthritis at L4-5.
== END 2022-07-20 08:58 | disposition home or self-care (01) ==
LOC: RAD 08:58
PROVIDERS: PCP Family Medicine; Visit Provider Family Medicine
DX: M54.17 Radiculopathy, lumbosacral region (principal); M51.37 Other intervertebral disc degeneration, lumbosacral region; M96.1 Postlaminectomy syndrome, not elsewhere classified; M47.816 Spondylosis without myelopathy or radiculopathy, lumbar region
CPT/HCPCS: 72148

== ENCOUNTER → 2022-07-27 11:09 | Outpatient (BNVA) | payer MEDICAID, SELFPAY | PROVIDERS: PCP Family Medicine; Visit Provider Specialist | DX: G43.711 Chronic migraine without aura, intractable, with status migrainosus (principal) | CPT/HCPCS: 64615; J0585 ==

== ENCOUNTER → 2022-08-09 13:33 | Outpatient (BNVA) | payer MEDICAID, SELFPAY | PROVIDERS: PCP Family Medicine; Visit Provider Internal Medicine Rheumatology | DX: M05.79 Rheumatoid arthritis with rheumatoid factor of multiple sites without organ or systems involvement (principal); Z79.899 Other long term (current) drug therapy; Z71.85 Encounter for immunization safety counseling; G56.03 Carpal tunnel syndrome, bilateral upper limbs | CPT/HCPCS: 36415; 80076; 82565; 85025; 99214 ==

== ENCOUNTER → 2022-10-19 12:16 | Outpatient (BNVA) | payer MEDICAID, SELFPAY | PROVIDERS: PCP Family Medicine; Visit Provider Specialist | DX: G43.711 Chronic migraine without aura, intractable, with status migrainosus (principal) | CPT/HCPCS: 64615; J0585 ==

== ENCOUNTER → 2022-11-16 13:06 | Outpatient (BNVA) | payer MEDICAID, SELFPAY | PROVIDERS: PCP Family Medicine; Visit Provider Internal Medicine Rheumatology | DX: M05.79 Rheumatoid arthritis with rheumatoid factor of multiple sites without organ or systems involvement (principal); Z79.899 Other long term (current) drug therapy; Z71.85 Encounter for immunization safety counseling; G56.03 Carpal tunnel syndrome, bilateral upper limbs | CPT/HCPCS: 36415; 80076; 82565; 85025; 86140; 99214 ==

== ENCOUNTER → 2023-01-11 13:06 | Outpatient (BNVA) | payer MEDICAID, SELFPAY | PROVIDERS: PCP Family Medicine; Visit Provider Specialist | DX: G43.711 Chronic migraine without aura, intractable, with status migrainosus (principal) | CPT/HCPCS: 64615 ==

== ENCOUNTER → 2023-01-25 07:52 | Outpatient (BNVA) | payer MEDICAID, SELFPAY | PROVIDERS: PCP Family Medicine; Visit Provider Obstetrics & Gynecology | DX: R10.31 Right lower quadrant pain (principal) | CPT/HCPCS: 76857 ==

== ENCOUNTER → 2023-02-13 08:43 | Outpatient (BNVA) | payer MEDICAID, SELFPAY | PROVIDERS: PCP Family Medicine; Visit Provider Surgery | DX: R10.2 Pelvic and perineal pain (principal); G89.29 Other chronic pain | CPT/HCPCS: 99203 ==

== ENCOUNTER → 2023-02-14 12:49 | Outpatient (BNVA) | payer MEDICAID, SELFPAY | PROVIDERS: PCP Family Medicine; Visit Provider Internal Medicine Rheumatology | DX: M05.79 Rheumatoid arthritis with rheumatoid factor of multiple sites without organ or systems involvement (principal); M19.90 Unspecified osteoarthritis, unspecified site; Z71.85 Encounter for immunization safety counseling; G56.03 Carpal tunnel syndrome, bilateral upper limbs; Z79.899 Other long term (current) drug therapy | CPT/HCPCS: 80076; 82565; 85025; 86140; 99214 ==

== ENCOUNTER 2023-02-26 10:38 | Day surgery (SDC) | payer MEDICAID, SELFPAY ==
[2023-02-23 11:19] VITALS: BMI 34.1
[2023-02-26] VITALS (11 sets, daily range): BP systolic 129–176; BP diastolic 59–97; PULSE 67–93; RESP 16–26; TEMP 36.4; O2SAT 92–100
[2023-02-26] MEDS: sodium chloride 0.9% 1,000 ML 30 ML IV (11:38)
--- NOTE | 2023-02-26 12:11 | P.ANESASSM_ITS ---
Pre-Anesthetic Assessment Height/Weight: Height 1.7 m Weight 98.883 kg Temp Pulse Resp BP Pulse Ox O2 Del Method 97.6 F 67 16 132/86 99 Room Air 02/26/23 11:19 02/26/23 11:19 02/26/23 11:19 02/26/23 11:19 02/26/23 11:19 02/26/23 11:19 Operation Date: 02/26/23 12:15 Proposed Procedures p diagnostic laparocsocpy with appendectomy [id number],R10.2, G89.29(Not Applicable) - DO isaias Cade Laparoscopic Appendectomy(Not Applicable) - Flaquito Garcia DO Familial anesthetic complications: None Was Beta Angel taken within 24 hours: N/A Was Clonidine taken within 24 hours: N/A Last intake: Intake Last Liquid Date 02/25/23 Last Liquid Time 21:30 Last Solid Date 02/25/23 Last Solid Time 21:30 Social No alcohol and No tobacco Exam alert, oriented x 3, clear to auscultation bilaterally and regular rate & rhythm Airway Mallampati: Class III Dentition: false and other (multiple missing) Pulmonary Chronic Obstructive Pulmonary Disease and Sleep Apnea [facility] Rheumatoid Arthritis Neuropsych Neuropathy Anesthetic Plan ASA status: 3 Anesthesia: General Risk of > 500 ml blood loss (7ml/kg in children): No Other Pertinent Information gatorade at 0900 Medications/Allergies Home Medications Medication Instructions Recorded Confirmed Last Taken Type cholecalciferol (vitamin D3) 100 8,000 unit PO DAILY 12/11/19 02/26/23 02/26/23 History mcg (4,000 unit) capsule docusate sodium 100 mg capsule 200 mg PO DAILY 12/11/19 02/26/23 02/25/23 History (Colace) tramadol 50 mg tablet 50 mg PO Q8H PRN Pain 04/14/21 02/23/23 02/21/23 History onabotulinumtoxinA 100 unit 100 unit IM .Q90 04/06/22 02/26/23 12/28/22 History solution for injection (Botox) topiramate 100 mg tablet See Rx Instructions .Route 09/19/22 02/23/23 02/22/23 Rx .COMPLEX #60 tabs celecoxib 200 mg capsule 200 mg PO BID 12/14/22 02/23/23 02/23/23 History prazosin 2 mg capsule 4 mg PO .at bed #60 caps 12/14/22 02/26/23 02/25/23 Rx zolpidem 10 mg tablet (Ambien) 10 mg PO .HS #30 tabs 01/02/23 02/23/23 02/22/23 Rx diclofenac sodium 1 % topical gel See Rx Instructions .Route 02/14/23 02/26/23 02/25/23 Rx (Arthritis Pain (diclofenac)) .COMPLEX #100 grams etanercept 50 mg/mL (1 mL) 50 mg SUBCUT .Q7days #4 mL 02/14/23 02/23/23 02/21/23 Rx subcutaneous pen injector (Enbrel SureClick) tizanidine 4 mg tablet 4 mg PO TID 02/23/23 02/26/23 02/25/23 History Allergies Allergy/AdvReac Type Severity Reaction Status Date / Time aspirin Allergy Severe rash Verified 02/14/23 13:08 whelps and yadira swelling atorvastatin [From Lipitor] Allergy Intermediate cough & Verified 02/14/23 13:08 hives Current Medications Generic Name Dose Route Start Last Admin Trade Name Freq PRN Reason Stop Dose Admin Sodium Chloride 1,000 mls @ 30 mls/hr 02/26/23 11:00 02/26/23 11:38 Sodium Chloride 0.9% IV 02/27/23 10:59 30 mls/hr .Q24H DELBERT Administration PFSH Anesthesia Medical History Bilateral carpal tunnel syndrome High risk medication use History of COPD Insomnia Major depressive disorder, recurrent severe without psychotic features (Unknown) Migraine without aura Nicotine dependence, cigarettes, uncomplicated No pertinent past medical history neghx: htn,dm,thyroid,dvt/pe PCP: Dr. Alexandra Past heart attack 5-10 years ago Psychiatric care Right lower quadrant abdominal pain Seropositive rheumatoid arthritis of multiple sites Sleep apnea, unspecified Surgical History History of bilateral tubal ligation (~1996) History of cholecystectomy (~1996) History of endometrial ablation (06/26/06) ThermaChoice endometrial ablation. Dx: Menorrhagia. Performed by Dr. Holcomb [facility] in [place], [place]. History of hand surgery Left ring finger History of laparoscopy (~06/2022) laparoscopic RSO with severe lysis of adhesions. Specimens removed/disposition: right tube and ovary to pathology Performed by Dr. Huizar History of left knee surgery (~2012) History of right knee surgery (~2018) Dr. Smith History of tonsillectomy and adenoidectomy (~1983) Age 9 History of total vaginal hysterectomy (02/01/10) Dx: Lower abdominal pain, Dyspareunia, Entrapped menses. Performed by Dr. Holcomb at [facility] in [place], [place]. Status post hemilaminotomy (08/24/16) Bilateral L5-S1 hemilminotomy/disectomy/foraminotomy. Dx: Displaced lumbosacral intravertebral disc with radiculopathy. Performed by at [facility] in [place], [place]. Family History Unknown Hypertension maternal family members in general Grandmother Diabetes maternal Sister Diabetes Hypercholesteremia Mother Hypercholesteremia Diabetes Stroke Family/Other Breast cancer maternal aunt--dx age unknown Cancer Maternal aunt--- female cancer unknown dx age 60's Denies family history of Colon cancer Ovarian cancer Chronic kidney disease (CKD) Uterine cancer Thyroid disease Social History Smoking and tobacco status: never smoked Substance/Drug Use: never Data Anesthesia Cardiac Studies: No Data to Display
[2023-02-26] MEDS: midazolam 1 mg/mL INJ 2 mL 2 MG IVP ×3 (13:21→15:41)
--- NOTE | 2023-02-26 13:21 | SUR.PREOP ---
13:21 patient medicated for anxiety per doctor Maia. O2 sat on, call rosales in reach, family at bedside.
[2023-02-26] MEDS: scopolamine 1.5 Patch 1 PATCH TRANSDERMA (15:35)
--- NOTE | 2023-02-26 15:56 | W.PM.OPSUD ---
Surgery/Procedure H&P Update DATE OF PROCEDURE: February 26, 2023 DATE H&P PERFORMED: 02/13/23 H&P UPDATE INFORMATION: I have reviewed H&P completed within last 30 days, I have examined patient prior to procedure and No changes to prior documentation PLANNED PROCEDURE: Operation Date: 02/26/23 12:15 Proposed Procedures p diagnostic laparocsocpy with appendectomy [id number],R10.2, G89.29(Not Applicable) - DO isaias Cade Laparoscopic Appendectomy(Not Applicable) - Flaquito Garcia DO
[2023-02-26] MEDS: ceFAZolin 2,000 MG in sodium chloride 0.9% (plus) 50 ML 100 MG IV (16:10)
[2023-02-26] MEDS: lidocaine-epi 2% 20 mL INJ INJECTION (16:28)
--- NOTE | 2023-02-26 17:35 | CTR_ITS ---
PROCEDURE INFORMATION: Exam: CT Pelvis With Contrast Exam date and time: 02/26/2023 6:24 PM Age: 47 years old Clinical indication: Pain; Other: Post or screening; Prior surgery; Surgery date: Post-operative (0-2 days); Surgery type: RT ureriter; Additional info: R/O right ureteral injury at R internal iliac artery TECHNIQUE: Imaging protocol: Computed tomography of the pelvis with contrast. Radiation optimization: All CT scans at this facility use at least one of these dose optimization techniques: automated exposure control; mA and/or kV adjustment per patient size (includes targeted exams where dose is matched to clinical indication); or iterative reconstruction. Contrast material: OMNI 350; Contrast volume: 100 ml; Contrast route: INTRAVENOUS (IV); REPORTING DATA: Count of CT and Cardiac NM exams in prior 12 months: This patient has received 0 known CTs and 0 known cardiac nuclear medicine studies in the 12 months prior to the current study. COMPARISON: CT kidney stone [id number] 12/06/2016 11:55 AM RADIATION DOSE METRICS: Total DLP (mGy-cm): 2175 FINDINGS: Kidneys and ureters: The bilateral distal ureters appear normal. No leak or contrast extravasation. Stomach and bowel: Visualized small bowel and colon are unremarkable. Appendix: The appendix is not visualized. No secondary signs of appendicitis. Intraperitoneal space: Mild pelvic ascites, Hounsfield units less than 20. Small amount of pneumoperitoneum. Lymph nodes: Unremarkable. No enlarged lymph nodes. Urinary bladder: Distended urinary bladder. No wall thickening. Reproductive: The uterus and ovaries are absent. Bones/joints: Degenerative changes at L5-S1. No fracture. Soft tissues: Gas in the periumbilical soft tissues, consistent with recent surgery. CT/CT pelvis w con* [id number] IMPRESSION: 1. No acute findings. No evidence for ureteral leak or contrast extravasation. 2. Mild pelvic ascites and small amount of pneumoperitoneum is consistent with recent abdominal surgery.
--- NOTE | 2023-02-26 17:39 | P.OP_ITS ---
Operative Report Date of procedure: February 26, 2023 Pre-op diagnosis: Chronic pelvic pain Post-op diagnosis: other (Endometriosis of right ovary remnant, blood in the pelvis, dense pelvic adhesions) Procedure done: Diagnostic laparoscopy with laparoscopic appendectomy, lysis of adhesions an right salpingo-oophorectomy Implants: None Specimens removed/disposition: Appendix, right ovary and fallopian tube Surgeon: Dr. Flaquito Garcia, Anesthesia: General Estimated blood loss (mL): 5 Complications: None apparent Findings: Remnant of right ovary and fallopian tube densely adhered to pelvic wall. Ovary had endometriosis and hemorrhagic cysts. Blood in the pelvis Brief History: This is a very pleasant 47-year-old female who has been suffering with chronic pelvic pain for approximately 3 years. She previously underwent a right oophorectomy in which endometriosis and hemorrhagic cyst were identified on the ovary. She was sent to my office for possible appendectomy and lysis of adhesions. The risks and benefits of diagnostic laparoscopy with appendectomy were explained and documented. Procedure: Patient was wheeled in operative room placed on the OR table in supine position. The abdomen was inspected prepped and draped in usual sterile fashion. A a timeout was performed. All present were in agreement. General endotracheal intubation was achieved by the department of anesthesia. 2% lidocaine with epinephrine was used to anesthetize the skin in the left upper quadrant of the abdomen. A 5 mm incision was then made with a 15 blade scalpel. A Veress needle was entered over Howe's point and intra-abdominal insufflation was brought to 15 mmHg. The Veress needle was removed and a 5 mm trocar was placed at this location using Optiview. There were dense omental adhesions in the pelvis. A 10 mm trocar was placed into the umbilicus and 2 5 mm trocars were placed in the lower abdomen, 1 on the left and 1 on the right. The appendix was identified and was not inflamed. Appendectomy was performed by ligating the mesoappendix using Enseal and then ligating the base of the appendix with PDS Endoloop x2. The appendix was then ligated with Enseal just distal to the Endoloop. The appendix was removed from the umbilicus via an Endo Catch bag. I then spent about 20 minutes lysing adhesions in the pelvis and right lower quadrant. During this process I discovered a remnant of the right ovary and fallopian tube densely scarred to the right side of the pelvis. There were hemorrhagic cysts and endometriosis on the ovary and blood in the pelvis. At this point I broke scrub and went and talked to the patient's . I received informed consent for right who for right oophorectomy. I then scrubbed back in and proceeded with removing the remnant of right ovary and fallopian tub e. Using the Enseal I ligated the scar tissue between the right ovary and fallopian tube and the pelvic wall. I took care to avoid the ureter. There were a few deposits of endometriosis on the omentum and pelvis which I cauterized using the Enseal. I then took a look around the abdomen and did not notice any gross pathology. I suctioned and irrigated the blood out of the pelvis. The millimeter trocar was removed and the fascia was closed with an 0 Vicryl and Sonny-Melecio in a yezsrz-bj-lolwp fashion. Insufflation was removed and the remaining trocars were removed. Skin was closed with 4-0 Monocryl in a subcuticular interrupted fashion. Dermabond was applied. Patient tolerated procedure well. Postoperatively I sent the patient for a CT of the pelvis with IV contrast to confirm that there was no injury to the right ureter, as there was dense scarring that had to be ligated over the right internal iliac artery in order to remove the right ovary and fallopian tube.
--- NOTE | 2023-02-26 18:07 | PC.NURSE ---
nasal trumpet removed at 1807
[2023-02-26] MEDS: fentaNYL 50 mcg/mL INJ 2mL IVP (18:12)
[2023-02-26] MEDS: ondansetron 2 mg/ML SDV 2 mL 4 MG IVP (18:12)
--- NOTE | 2023-02-26 18:45 | ANE.PACU2 ---
Inpatient post-anesthesia follow up: Airway intact: Yes Vital signs: Temperature 97.5 F Pulse Rate 75 Respiratory Rate 18 Blood Pressure 148/72 Pulse Oximetry 92 Oxygen Delivery Me thod Room Air Oxygen Flow Rate 6 Fraction of Inspir ed Oxygen Hydration adequate: Yes Nausea and vomiting: No Pain level: 1 Mental status: Baseline
[2023-02-26] MEDS: iohexol 350 mg/mL 500 mL Btl (per mL) IV (18:47)
[2023-02-26] MEDS: HYDROmorphone 1 mg/mL INJ 1 mL 0.5 MG IVP (18:58)
[2023-02-26] MEDS: oxyCODONE-APAP 5-325 mg Tablet 1.5 TAB PO (19:09)
[2023-02-26] MEDS: ondansetron 2 mg/ML SDV 2 mL 4 MG (19:29)
== END 2023-02-26 19:37 | disposition home or self-care (01) ==
PROVIDERS: PCP Family Medicine; Visit Provider Surgery
PROC: (CPT 49320; principal; 2023-02-26 12:15)
PROC: 0DTJ4ZZ Resection of Appendix, Percutaneous Endoscopic Approach (ICD-10-PCS; CPT 44970; 2023-02-26 12:15)
PROC: (CPT 58661; 2023-02-26 12:15)
DX: R10.2 Pelvic and perineal pain (principal); G89.29 Other chronic pain; J44.9 Chronic obstructive pulmonary disease, unspecified; G47.30 Sleep apnea, unspecified; G62.9 Polyneuropathy, unspecified; Z79.891 Long term (current) use of opiate analgesic; R10.31 Right lower quadrant pain; R18.8 Other ascites
CPT/HCPCS: 44970; 49329; 72193; 88304; 88305; J0690; J1100; J1170; J2250; J2405; J2704; J2710; J3010; J3490; J7030; Q9967

== ENCOUNTER → 2023-03-06 09:26 | Outpatient (BNVA) | payer MEDICAID, SELFPAY | PROVIDERS: PCP Family Medicine; Visit Provider Surgery | DX: R10.2 Pelvic and perineal pain (principal); N80.9 Endometriosis, unspecified; G89.29 Other chronic pain; Z98.890 Other specified postprocedural states | CPT/HCPCS: 99024 ==

== ENCOUNTER → 2023-04-12 10:43 | Outpatient (BNVA) | payer MEDICAID, SELFPAY | PROVIDERS: PCP Family Medicine; Visit Provider Specialist | DX: G43.711 Chronic migraine without aura, intractable, with status migrainosus (principal) | CPT/HCPCS: 64615; J0585 ==

== ENCOUNTER → 2023-05-23 13:03 | Outpatient (BNVA) | payer MEDICAID, SELFPAY | PROVIDERS: PCP Family Medicine; Visit Provider Internal Medicine Rheumatology | DX: Z79.899 Other long term (current) drug therapy (principal); M05.79 Rheumatoid arthritis with rheumatoid factor of multiple sites without organ or systems involvement; Z71.85 Encounter for immunization safety counseling; G56.03 Carpal tunnel syndrome, bilateral upper limbs | CPT/HCPCS: 36415; 80076; 82565; 85025; 86140; 99214 ==

== ENCOUNTER → 2023-07-12 15:11 | Outpatient (BNVA) | payer MEDICAID, SELFPAY | PROVIDERS: PCP Family Medicine; Visit Provider Specialist | DX: G43.711 Chronic migraine without aura, intractable, with status migrainosus (principal) | CPT/HCPCS: 64615; J0585 ==

== ENCOUNTER 2023-08-01 11:52 | Outpatient (RCR) | payer MEDICAID, SELFPAY | END 2023-08-14 23:59 | disposition home or self-care (01) | LOC: SPT 11:52 | PROVIDERS: PCP Family Medicine; Visit Provider Nurse Practitioner Family | DX: M54.9 Dorsalgia, unspecified (principal); G89.29 Other chronic pain; M47.27 Other spondylosis with radiculopathy, lumbosacral region; M96.1 Postlaminectomy syndrome, not elsewhere classified | CPT/HCPCS: 97110; 97161 ==

== ENCOUNTER 2023-08-15 06:00 | Outpatient (RCR) | payer MEDICAID, SELFPAY | END 2023-09-13 23:59 | disposition home or self-care (01) | LOC: SPT 06:00 | PROVIDERS: PCP Family Medicine; Visit Provider Nurse Practitioner Family | DX: M54.9 Dorsalgia, unspecified (principal); G89.29 Other chronic pain; M47.27 Other spondylosis with radiculopathy, lumbosacral region; M96.1 Postlaminectomy syndrome, not elsewhere classified | CPT/HCPCS: 97110 ==

== ENCOUNTER → 2023-09-19 13:18 | Outpatient (BNVA) | payer MEDICAID, SELFPAY | PROVIDERS: PCP Family Medicine; Visit Provider Internal Medicine Rheumatology | DX: M05.79 Rheumatoid arthritis with rheumatoid factor of multiple sites without organ or systems involvement (principal); Z79.899 Other long term (current) drug therapy; M25.519 Pain in unspecified shoulder; Z11.1 Encounter for screening for respiratory tuberculosis; Z71.85 Encounter for immunization safety counseling; G56.03 Carpal tunnel syndrome, bilateral upper limbs | CPT/HCPCS: 36415; 80076; 82565; 85025; 86140; 86480; 99214 ==

== ENCOUNTER 2023-10-11 10:18 | Outpatient (CLI) | payer MEDICAID, SELFPAY ==
[2023-10-11 10:51] LABS: Blood Urea Nitrogen 13 mg/dL (6-20); Glomerular Filtration Rate 66.8 mL/min (90-130)
== END 2023-10-11 10:19 | disposition home or self-care (01) ==
LOC: LAB 10:20
PROVIDERS: PCP Family Medicine; Visit Provider Internal Medicine Rheumatology
DX: M05.79 Rheumatoid arthritis with rheumatoid factor of multiple sites without organ or systems involvement (principal); Z79.899 Other long term (current) drug therapy
CPT/HCPCS: 36415; 82565; 84520

== ENCOUNTER → 2023-10-18 14:50 | Outpatient (BNVA) | payer MEDICAID, SELFPAY | PROVIDERS: PCP Family Medicine; Visit Provider Specialist | DX: G43.711 Chronic migraine without aura, intractable, with status migrainosus (principal) | CPT/HCPCS: 64615; J0585 ==

== ENCOUNTER 2023-10-24 12:49 | Outpatient (CLI) | payer MEDICAID, SELFPAY ==
--- NOTE | 2023-10-24 13:00 | MR_ITS ---
WS: [id number] MRI RIGHT SHOULDER HISTORY: M25.519 - Pain in unspecified shoulder COMPARISON: None available. TECHNIQUE: Multiplanar sequences of the shoulder joint are submitted. Severe AC joint arthropathy with encroachment and impingement upon the supraspinatus muscle with defo rmity. Large osteophytes with narrowing of the AC joint. No significant subacromial or subdeltoid flu id. No significant subacromial impingement. Normal biceps tendon in the bicipital groove. No os acrom ion. No rotator cuff tendon tear. No muscle atrophy or edema. There is slight narrowing of the glenohumera l joint. No labral tear. IMPRESSION: 1. Severe AC joint arthropathy with encroachment and deformity upon the supraspinatus. 2. No rotator cuff tear. 3. No muscle atrophy.
== END 2023-10-24 12:50 | disposition home or self-care (01) ==
LOC: RAD 12:50
PROVIDERS: PCP Family Medicine; Visit Provider Internal Medicine Rheumatology
DX: M25.511 Pain in right shoulder (principal); M12.811 Other specific arthropathies, not elsewhere classified, right shoulder
CPT/HCPCS: 73221

== ENCOUNTER → 2023-11-12 14:18 | Outpatient (BNVA) | payer MEDICAID, SELFPAY | PROVIDERS: PCP Family Medicine; Referring Provider Internal Medicine Rheumatology; Visit Provider Specialist | DX: M25.811 Other specified joint disorders, right shoulder; M19.011 Primary osteoarthritis, right shoulder | CPT/HCPCS: 20610; 73030; 99204; J1040; J1100; J2795 ==

== ENCOUNTER 2023-11-13 14:54 | Outpatient (CLI) | payer MEDICAID, SELFPAY ==
--- NOTE | 2023-11-13 14:57 | MR_ITS ---
WS: [id number] MRI CERVICAL SPINE NONCONTRAST TECHNIQUE: Sagittal T1, T2 and STIR imaging. Axial T2, gradient, and fiesta imaging. CLINICAL INFORMATION: CERVICAL SPONDYLOSIS W/RADICULOPATHY COMPARISON: None. FINDINGS: Straightening of the normal cervical lordosis. Cord signal is normal. No high-grade spinal canal narr owing. Shallow disc protrusions C3-C4 C4-C5 and C5-C6. Cord signal is normal. C2-C3: Normal. C3-C4: Slight anterolisthesis C3 on C4. Mild disc osteophyte complex with endplate ridging. Mild face t arthropathy. Spinal canal and foramen are patent. C4-C5: Tiny central disc osteophyte complex. Spinal canal is patent. Mild facet arthropathy. Foramen are patent. C5-C6: Central disc osteophyte protrusion with slight indentation cervical cord. Mild central canal s tenosis. Mild bilateral bony foraminal narrowing. This is progressed compared to previous. C6-C7: Mild disc osteophytic ridging. Spinal canal and foramen are patent. C7-T1: Mild LEFT bony foraminal narrowing. Spinal canal and RIGHT foramen are patent. Visualized brain stem structures: Normal. Prevertebral soft tissues: Normal. IMPRESSION: 1. Straightening of the normal cervical lordosis. Cord signal is normal. 2. Small central disc osteophyte protrusion at C5-C6 with mild central canal stenosis. Mild bilatera l bony foraminal narrowing. This is new since 2009. 3. Tiny central disc osteophyte protrusions C3-C4 and C4-C5 without significant central canal narrow ing. 4. Mild facet arthropathy C3-C4 C4-C5 and C5-C6. 5. Mild LEFT C7-T1 bony foraminal narrowing.
== END 2023-11-13 14:55 | disposition home or self-care (01) ==
LOC: RAD 14:55
PROVIDERS: PCP Family Medicine; Visit Provider General Practice
DX: M47.22 Other spondylosis with radiculopathy, cervical region (principal); M25.78 Osteophyte, vertebrae; M48.03 Spinal stenosis, cervicothoracic region
CPT/HCPCS: 72141

== ENCOUNTER → 2023-12-10 14:27 | Outpatient (BNVA) | payer MEDICAID, SELFPAY | PROVIDERS: PCP Family Medicine; Visit Provider Specialist | DX: M25.811 Other specified joint disorders, right shoulder (principal); M19.011 Primary osteoarthritis, right shoulder | CPT/HCPCS: 99213 ==

== ENCOUNTER → 2023-12-27 16:05 | Outpatient (BNVA) | payer MEDICAID, SELFPAY | PROVIDERS: PCP Family Medicine; Visit Provider Orthopaedic Surgery | DX: M54.2 Cervicalgia (principal); M47.22 Other spondylosis with radiculopathy, cervical region | CPT/HCPCS: 72040; 99204 ==

== ENCOUNTER 2024-01-01 10:00 | Outpatient (CLI) | payer MEDICAID, SELFPAY ==
[2024-01-01 10:51] LABS: Basophils % 0.4 %; Eosinophils # 0.2 10^3/uL (0.0-0.8); Lymphocytes # 2.7 10^3/uL (0.8-4.8); Lymphocytes % 32.5 %; Mean Corpuscular HGB Conc 32.3 g/dL (30-55); Mean Corpuscular Hemoglobin 30.6 pg (27-33); Mean Platelet Volume 11.3 fL (7.4-10.4); Monocytes # 0.8 10^3/uL (0.2-0.9); Monocytes % 9.6 %; Neutrophils # 4.64 10^3/uL (1.8-7.7); Neutrophils % 55.1 %; Nucleated Red Blood Cells % 0 %; Platelet Count 222 10^3/cmm (157-399); Red Blood Count 4.21 10^6/uL (3.85-5.65); Red Cell Distribution Width 13.1 % (12.1-15.1); White Blood Count 8.42 10^3/uL (3.29-11.43)
[2024-01-01 11:16] LABS: Alanine Aminotransferase 19 U/L (0-33); Alkaline Phosphatase 106 U/L (35-105); Globulin 2.9 g/dL (1.3-4.6); Glomerular Filtration Rate 89.3 mL/min (90-130); Total Bilirubin 0.2 mg/dL (0.15-1.2); Total Protein 6.9 g/dL (6.6-8.7)
[2024-01-01 11:20] LABS: Aspartate Amino Transferase 19 U/L (0-32)
== END 2024-01-01 10:01 | disposition home or self-care (01) ==
LOC: LAB 10:02
PROVIDERS: PCP Family Medicine; Visit Provider Internal Medicine Rheumatology
DX: M05.79 Rheumatoid arthritis with rheumatoid factor of multiple sites without organ or systems involvement (principal); Z79.899 Other long term (current) drug therapy
CPT/HCPCS: 36415; 80076; 82565; 85025; 86140

== ENCOUNTER → 2024-01-17 14:08 | Outpatient (BNVA) | payer MEDICAID, SELFPAY | PROVIDERS: PCP Family Medicine; Visit Provider Specialist | DX: G43.711 Chronic migraine without aura, intractable, with status migrainosus (principal) | CPT/HCPCS: 64615; J0585 ==

== ENCOUNTER 2024-01-18 11:14 | Outpatient (CLI) | payer MEDICAID, SELFPAY ==
--- NOTE | 2024-01-18 11:30 | MM_ITS ---
WS: [id number] BILATERAL 3D TOMOSYNTHESIS DIGITAL SCREENING MAMMOGRAPHY WITH CAD CLINICAL INFORMATION: Z12.31 - Encounter for screening mammogram for malignant ... HISTORY: Screening mammogram. No current complaints. COMPARISON: 2020 TECHNIQUE: Bilateral CC and MLO views. FINDINGS: Scattered fibroglandular densities bilaterally. No suspicious focal mass, asymmetry, calcifications, or architectural distortion. No evidence of malignancy. Stable intramammary lymph node along the RIGH T axillary tail. IMPRESSION: MM/[place] [id number] BI-RADS: 2-Benign FOLLOW UP: 1 Year Follow-up Recommend return to annual screening mammography.
== END 2024-01-18 11:15 | disposition home or self-care (01) ==
LOC: RAD 11:14
PROVIDERS: PCP Family Medicine; Visit Provider Nurse Practitioner Women's Health
DX: Z12.31 Encounter for screening mammogram for malignant neoplasm of breast (principal)
CPT/HCPCS: 77063; 77067

== ENCOUNTER → 2024-04-24 12:37 | Outpatient (BNVA) | payer MEDICAID, SELFPAY | PROVIDERS: PCP Family Medicine; Visit Provider Specialist | DX: G43.711 Chronic migraine without aura, intractable, with status migrainosus (principal); R03.0 Elevated blood-pressure reading, without diagnosis of hypertension | CPT/HCPCS: 64615; J0585 ==

== ENCOUNTER → 2024-05-21 10:58 | Outpatient (BNVA) | payer MEDICAID, SELFPAY | PROVIDERS: PCP Family Medicine; Visit Provider Internal Medicine Rheumatology | DX: M05.79 Rheumatoid arthritis with rheumatoid factor of multiple sites without organ or systems involvement (principal); G56.03 Carpal tunnel syndrome, bilateral upper limbs; Z79.899 Other long term (current) drug therapy; Z71.85 Encounter for immunization safety counseling; Z11.1 Encounter for screening for respiratory tuberculosis; Z11.59 Encounter for screening for other viral diseases | CPT/HCPCS: 36415; 80076; 82565; 85025; 85651; 86140; 99214 ==

== ENCOUNTER → 2024-07-17 09:45 | Outpatient (BNVA) | payer MEDICAID, SELFPAY | PROVIDERS: PCP Family Medicine; Visit Provider Specialist | DX: G43.711 Chronic migraine without aura, intractable, with status migrainosus (principal); R03.0 Elevated blood-pressure reading, without diagnosis of hypertension | CPT/HCPCS: 64615; J0585 ==

== ENCOUNTER → 2024-10-24 10:12 | Outpatient (BNVA) | payer MEDICAID, SELFPAY | PROVIDERS: PCP Family Medicine; Visit Provider Specialist | DX: G43.711 Chronic migraine without aura, intractable, with status migrainosus (principal) | CPT/HCPCS: 64615; J0585 ==

== ENCOUNTER → 2024-11-04 12:20 | Outpatient (BNVA) | payer MEDICAID, SELFPAY | PROVIDERS: PCP Family Medicine; Visit Provider Emergency Medicine | DX: J02.9 Acute pharyngitis, unspecified (principal); J01.00 Acute maxillary sinusitis, unspecified; J20.8 Acute bronchitis due to other specified organisms; B96.89 Other specified bacterial agents as the cause of diseases classified elsewhere | CPT/HCPCS: 87071; 87880 ==

== ENCOUNTER → 2024-11-24 14:19 | Outpatient (BNVA) | payer MEDICAID, SELFPAY | PROVIDERS: PCP Family Medicine; Visit Provider Internal Medicine Rheumatology | DX: M05.79 Rheumatoid arthritis with rheumatoid factor of multiple sites without organ or systems involvement (principal); Z79.899 Other long term (current) drug therapy; Z71.85 Encounter for immunization safety counseling; G56.03 Carpal tunnel syndrome, bilateral upper limbs; M54.9 Dorsalgia, unspecified | CPT/HCPCS: 36415; 72040; 72072; 72100; 80061; 80076; 82565; 85025; 85651; 86140; 99214 ==

== ENCOUNTER → 2025-01-13 16:22 | Outpatient (BNVA) | payer MEDICAID, SELFPAY | PROVIDERS: PCP Family Medicine; Visit Provider Nurse Practitioner Women's Health | DX: Z01.411 Encounter for gynecological examination (general) (routine) with abnormal findings (principal); E89.40 Asymptomatic postprocedural ovarian failure; R10.2 Pelvic and perineal pain; G89.29 Other chronic pain; N80.9 Endometriosis, unspecified | CPT/HCPCS: 82306 ==

== ENCOUNTER 2025-01-19 13:49 | Outpatient (CLI) | payer MEDICAID, SELFPAY ==
--- NOTE | 2025-01-19 14:00 | MM_ITS ---
WS: [id number] BILATERAL 3D TOMOSYNTHESIS DIGITAL SCREENING MAMMOGRAPHY WITH CAD CLINICAL INFORMATION: Z12.31 - Encounter for screening mammogram for malignant ... HISTORY: Screening mammogram. No current complaints. COMPARISON: 01/18/2024 TECHNIQUE: Bilateral CC and MLO views. FINDINGS: Scattered fibroglandular densities bilaterally. No suspicious focal mass, asymmetry, calcifications, or architectural distortion. No evidence of malignancy. Benign calcification RIGHT breast MM/MM scr tomosynthesis [id number] IMPRESSION: DENSITY: There are scattered areas of fibroglandular density. BI-RADS: 2 - Benign. FOLLOW UP: 1 Year Follow-up Recommend return to annual screening mammography.
== END 2025-01-19 13:50 | disposition home or self-care (01) ==
PROVIDERS: PCP Family Medicine; Visit Provider Nurse Practitioner Women's Health
DX: Z12.31 Encounter for screening mammogram for malignant neoplasm of breast (principal); R92.323 Mammographic fibroglandular density, bilateral breasts; R92.1 Mammographic calcification found on diagnostic imaging of breast
CPT/HCPCS: 77063; 77067

== ENCOUNTER → 2025-01-23 10:27 | Outpatient (BNVA) | payer MEDICAID, SELFPAY | PROVIDERS: PCP Family Medicine; Visit Provider Specialist | DX: G43.711 Chronic migraine without aura, intractable, with status migrainosus (principal); R03.0 Elevated blood-pressure reading, without diagnosis of hypertension | CPT/HCPCS: 64615; J0585; J9999 ==

== ENCOUNTER → 2025-01-26 13:21 | Outpatient (BNVA) | payer MEDICAID, SELFPAY | PROVIDERS: PCP Family Medicine; Visit Provider Nurse Practitioner Women's Health | DX: R10.2 Pelvic and perineal pain (principal) | CPT/HCPCS: 76830 ==

== ENCOUNTER → 2025-03-16 13:42 | Outpatient (BNVA) | payer MEDICAID, SELFPAY | PROVIDERS: PCP Family Medicine; Visit Provider Internal Medicine Rheumatology | DX: M05.79 Rheumatoid arthritis with rheumatoid factor of multiple sites without organ or systems involvement (principal); Z79.899 Other long term (current) drug therapy; Z71.85 Encounter for immunization safety counseling; G56.03 Carpal tunnel syndrome, bilateral upper limbs; M25.569 Pain in unspecified knee; E66.3 Overweight | CPT/HCPCS: 36415; 73562; 80076; 82565; 85025; 85651; 86140; 86480; 99214 ==

== ENCOUNTER → 2025-04-23 10:28 | Outpatient (BNVA) | payer MEDICAID, SELFPAY | PROVIDERS: PCP Family Medicine; Visit Provider Specialist | DX: G43.711 Chronic migraine without aura, intractable, with status migrainosus (principal); R03.0 Elevated blood-pressure reading, without diagnosis of hypertension | CPT/HCPCS: 64615; J0585; J9999 ==

== ENCOUNTER → 2025-04-27 13:14 | Outpatient (BNVA) | payer MEDICAID, SELFPAY | PROVIDERS: PCP Family Medicine; Referring Provider Internal Medicine Rheumatology; Visit Provider Internal Medicine | DX: Z79.899 Other long term (current) drug therapy (principal); R03.0 Elevated blood-pressure reading, without diagnosis of hypertension; G43.711 Chronic migraine without aura, intractable, with status migrainosus | CPT/HCPCS: 36415; 80048; 83036; 84439; 84443 ==

== ENCOUNTER → 2025-06-01 13:31 | Outpatient (BNVA) | payer MEDICAID, SELFPAY | PROVIDERS: PCP Family Medicine; Visit Provider Internal Medicine Rheumatology | DX: M05.79 Rheumatoid arthritis with rheumatoid factor of multiple sites without organ or systems involvement (principal); Z79.899 Other long term (current) drug therapy; Z71.85 Encounter for immunization safety counseling; G56.03 Carpal tunnel syndrome, bilateral upper limbs | CPT/HCPCS: 99214 ==

== ENCOUNTER 2025-07-21 09:42 | Outpatient (CLI) | payer MEDICAID, SELFPAY ==
[2025-07-21 11:14] LABS: Hematocrit 37.8 % (36-47); Hemoglobin 12.20 g/dL (11.27-16.99); Mean Corpuscular HGB Conc 32.3 g/dL (30-55); Mean Corpuscular Hemoglobin 30.1 pg (27-33); Mean Corpuscular Volume 93.3 fl (85-98); Nucleated Red Blood Cells % 0 %; Platelet Count 248 10^3/cmm (157-399); Red Blood Count 4.05 10^6/uL (3.85-5.65); White Blood Count 7.30 10^3/uL (3.29-11.43)
[2025-07-21 11:32] LABS: Alanine Aminotransferase 20 U/L (0-33); Albumin Level 4.3 g/dL (3.5-5.2); Alkaline Phosphatase 80 U/L (35-105); Anion Gap 15.1 (5-19); Aspartate Amino Transferase 20 U/L (0-32); Blood Urea Nitrogen 13 mg/dL (6-20); Calcium 8.9 mg/dL (8.5-10.5); Carbon Dioxide 22 mmol/L (22-29); Chloride 107 mmol/L (98-107); Globulin 2.8 g/dL (1.3-4.6); Glucose 81 mg/dL (65-115); Osmolality Calculated 289 mOsm/kg (285-295); Potassium 4.1 mmol/L (3.5-5.1); Sodium 140 mmol/L (136-145); Total Protein 7.1 g/dL (6.6-8.7)
== END 2025-07-21 09:43 | disposition home or self-care (01) ==
LOC: LAB 09:44
PROVIDERS: Internal Medicine Rheumatology; PCP Family Medicine; Visit Provider Internal Medicine
DX: Z79.899 Other long term (current) drug therapy (principal); R03.0 Elevated blood-pressure reading, without diagnosis of hypertension
CPT/HCPCS: 36415; 80048; 80076; 85025; 85651; 86140

== ENCOUNTER → 2025-07-27 10:49 | Outpatient (BNVA) | payer MEDICAID, SELFPAY | PROVIDERS: PCP Family Medicine; Referring Provider Internal Medicine Rheumatology; Visit Provider Internal Medicine | DX: E66.9 Obesity, unspecified (principal); M05.79 Rheumatoid arthritis with rheumatoid factor of multiple sites without organ or systems involvement | CPT/HCPCS: 99214 ==

== ENCOUNTER 2025-08-03 09:24 | Outpatient (CLI) | payer MEDICAID, SELFPAY ==
[2025-08-03 11:14] LABS: Hematocrit 38.3 % (36-47); Hemoglobin 12.70 g/dL (11.27-16.99); Mean Corpuscular HGB Conc 33.2 g/dL (30-55); Mean Corpuscular Hemoglobin 30.2 pg (27-33); Mean Corpuscular Volume 91.2 fl (85-98); Nucleated Red Blood Cells % 0 %; Platelet Count 272 10^3/cmm (157-399); Red Blood Count 4.20 10^6/uL (3.85-5.65); White Blood Count 7.79 10^3/uL (3.29-11.43)
[2025-08-03 11:38] LABS: Alanine Aminotransferase 17 U/L (0-33); Albumin Level 4.3 g/dL (3.5-5.2); Alkaline Phosphatase 82 U/L (35-105); Aspartate Amino Transferase 15 U/L (0-32); Globulin 2.5 g/dL (1.3-4.6); Total Protein 6.8 g/dL (6.6-8.7)
== END 2025-08-03 09:25 | disposition home or self-care (01) ==
PROVIDERS: PCP Family Medicine; Visit Provider Internal Medicine Rheumatology
DX: Z79.899 Other long term (current) drug therapy (principal)
CPT/HCPCS: 36415; 80076; 82565; 85025; 85651; 86140

== ENCOUNTER → 2025-08-06 07:54 | Outpatient (BNVA) | payer MEDICAID, SELFPAY | PROVIDERS: PCP Family Medicine; Visit Provider Specialist | DX: G43.711 Chronic migraine without aura, intractable, with status migrainosus (principal); R03.0 Elevated blood-pressure reading, without diagnosis of hypertension | CPT/HCPCS: 64615; J0585; J9999 ==

== ENCOUNTER 2025-08-18 07:59 | Outpatient (CLI) | payer MEDICAID, SELFPAY ==
--- NOTE | 2025-08-18 08:09 | MR_ITS ---
WS: [id number] MRI LUMBAR SPINE NONCONTRAST HISTORY: POSTLAMINECTOMY SYNDROME COMPARISON: 07/20/2022 TECHNIQUE: Sagittal and axial multisequence imaging is submitted. Normal posterior alignment. Slight increase in the lumbar lordosis. Mild reactive marrow edema in the L5 and S1 endplates has slightly improved. No acute fracture. Moderate degenerative disc space narrowing and desiccation at L5-S1. Conus terminates normally at L1-2 disc level. L1-L2: Normal. L2-L3: Mild disc bulging with ligamentum flavum and facet arthritis. Very mild central and subarticular recess narrowing. L3-L4: Mild disc bulging with ligamentum flavum and facet arthritis. No significant stenosis. L4-L5: Annular disc bulging with ligamentum flavum and facet arthritis. Mild encroachment upon the subarticular recesses. Increased epidural fat. Mild central, subarticular recess and foraminal stenosis. L5-S1: Diffuse annular disc bulging with osteophytic ridging. Disc osteophyte contact on the S1 nerve roots bilaterally. Bilateral foraminal disc osteophyte complexes with mild to moderate foraminal stenosis. Hemilaminectomy defect again identified. LEFT renal cyst 2.1 cm. Nerve roots in the thecal sac are poorly visualized. This may be due to arachnoiditis. The visualization has decreased since 07/20/2022 suggested clumping. MR/MR lumbar spine wo con* [id number] IMPRESSION: 1. Advanced degenerative disc disease at L5-S1. 2. Moderate bilateral subarticular recess and foraminal stenosis at L5-S1 due to disc osteophyte disease. No significant central stenosis. Mild disc osteophy te contact on the L5 and S1 nerve roots. 3. Hemilaminectomy at L5-S1. 4. Mild central, subarticular recess and foraminal stenosis at L4-5. Mild incr ease in the amount of epidural fat. 5. Mild central and subarticular recess narrowing at L2-3. 6. No acute fractures or marrow edema. 7. Decreased visualization of individual nerve roots in the thecal sac suggest ing arachnoiditis.
== END 2025-08-18 08:00 | disposition home or self-care (01) ==
LOC: RAD 08:02
PROVIDERS: PCP Family Medicine; Visit Provider General Practice
DX: M96.1 Postlaminectomy syndrome, not elsewhere classified (principal); M51.379 Other intervertebral disc degeneration, lumbosacral region without mention of lumbar back pain or lower extremity pain; M48.07 Spinal stenosis, lumbosacral region; M25.78 Osteophyte, vertebrae; Z98.890 Other specified postprocedural states; M48.061 Spinal stenosis, lumbar region without neurogenic claudication; R93.7 Abnormal findings on diagnostic imaging of other parts of musculoskeletal system; R60.0 Localized edema; M51.369 Other intervertebral disc degeneration, lumbar region without mention of lumbar back pain or lower extremity pain; M24.28 Disorder of ligament, vertebrae; M47.896 Other spondylosis, lumbar region; N28.1 Cyst of kidney, acquired
CPT/HCPCS: 72148

== ENCOUNTER → 2025-10-06 14:00 | Outpatient (BNVA) | payer MEDICAID, SELFPAY | PROVIDERS: PCP Family Medicine; Visit Provider Internal Medicine Rheumatology | DX: M05.79 Rheumatoid arthritis with rheumatoid factor of multiple sites without organ or systems involvement (principal); Z79.899 Other long term (current) drug therapy; Z71.85 Encounter for immunization safety counseling; G56.03 Carpal tunnel syndrome, bilateral upper limbs | CPT/HCPCS: 99214 ==